=== PATIENT | female | born 1950 | race American Indian/Alaskan Native ===

== ENCOUNTER 2017-04-27 16:30 | Inpatient (IN) | payer OTHER ==
[2017-04-27 18:15] VITALS: BMI 23.7
--- NOTE | 2017-04-27 20:03 | HP ---
CIWA Score - CIWA Score Nausea/Vomitin Muscle Tremors: 1-None Visible, but Marshes Siding Anxiety: 1-Mildly Anxious Agitation: 1-Slight > Activity Paroxysmal Sweats: 3 Orientation: 1-Uncertain about Date Tacttile Disturbances: 2-Mild Itch/Numbness/Burn Auditory Disturbances: 1-Very Mild Visual Disturbances: 0-None Headache: 2-Mild CIWA-Ar Total Score: 14 Admission ROS BHS - HPI Chief Complaint: WITHDRAWAL SYMPTOMS Allergies/Adverse Reactions: Allergies Allergy/AdvReac Type Severity Reaction Status Date / Time No Known Allergies Allergy Verified 04/27/17 19:35 History of Present Illness: 67 Y.O. WOMAN WITH A HISTORY OF ALCOHOL, CRACK-COCAINE AND PCP DEPENDENCE IS HERE SEEKING DETOX. SHE IS CURRENTLY ENROLLED IN A MMPT AND REPORTS SHE WAS LAST MEDICATED TODAY AT 115MG OF METHADONE. LONGEST PERIOD CLEAN HAS BEEN 1 YEAR. Exam Limitations: No Limitations - Ebola screening Have you traveled outside of the country in the last 21 days: No Have you had contact with anyone from an Ebola affected area: No Have you been sick,other than usual withdrawal symptoms: No Do you have a fever: No - Review of Systems Constitutional: Diaphoresis, Loss of Appetite EENT: reports: Blurred Vision, Double Vision, Tearing Respiratory: reports: Cough, Orthopnea, Shortness of Breath, Wheezing Cardiac: reports: Palpitations GI: reports: Nausea : reports: No Symptoms Reported Musculoskeletal: reports: Joint Pain (LEFT HIP PAIN) Integumentary: reports: No Symptoms Reported Neuro: reports: Numbness (RIGHT HAND NUMBNESS) Endocrine: reports: No Symptoms Reported Hematology: reports: Anemia (SICKLE CELL TRAIT) Psychiatric: reports: Judgement Intact, Mood/Affect Appropiate Other Systems: Reviewed and Negative Patient History - Patient Medical History Hx Anemia: Yes (NORBERTO: WAS PREVIOUSLY ON FEOSOLL; SICKLE CELL TRAIT) Hx Asthma: Yes Hx Chronic Obstructive Pulmonary Disease (COPD): No Hx Cancer: No Hx Cardiac Disorders: Yes (HEART MURMUR ) Hx Congestive Heart Failure: No Hx Hypertension: Yes Hx Hypercholesterolemia: No Hx Pacemaker: No HX Cerebrovascular Accident: No Hx Seizures: No Hx Dementia: No Hx Diabetes: No Hx Gastrointestinal Disorders: No Hx Liver Disease: No Hx Genitourinary Disorders: No Hx Sexually Transmitted Disorders: Yes (gonorrhea) Hx Renal Disease (ESRD): No Hx Thyroid Disease: No Hx Human Immunodeficiency Virus (HIV): No Hx Hepatitis C: No Hx Depression: Yes Hx Suicide Attempt: No Hx Bipolar Disorder: No Hx Schizophrenia: No - Patient Surgical History Past Surgical History: Yes Hx Neurologic Surgery: No Hx Cataract Extraction: No Hx Cardiac Surgery: No Hx Lung Surgery: No Hx Breast Surgery: No Hx Breast Biopsy: No Hx Abdominal Surgery: Yes (UMBILICAL HERNIA SX) Hx Appendectomy: No Hx Cholecystectomy: No Hx Genitourinary Surgery: No Hx Section: No Hx Orthopedic Surgery: No Other Surgical History: umbilical hernia repair Anesthesia Reaction: No - PPD History Previous Implant?: Yes Documented Results: Positive w/proof PPD to be Administered?: No - Reproductive History Patient is a Female of Child Bearing Age (11 -55 yrs old): No Patient : No - Smoking Cessation Smoking history: Current every day smoker Have you smoked in the past 12 months: Yes Aproximately how many cigarettes per day: 20 Cigars Per Day: 0 Hx Chewing Tobacco Use: No Initiated information on smoking cessation: Yes 'Breaking Loose' booklet given: 04/27/17 - Substance & Tx. History Hx Alcohol Use: Yes Hx Substance Use: Yes Substance Use Type: Alcohol, Cocaine Hx Substance Use Treatment: Yes (DETOX: 09/2015) - Substances Abused Alcohol Route: Oral Frequency: Daily Amount used: LIQUOR- 2 PINTS, BEER- 6 SIX PACKS Age of first use: 18 Date of Last Use: 04/27/17 Crack Route: Smoking Frequency: Daily Amount used: $200 Age of first use: 36 Date of Last Use: 04/26/17 PCP Route: Smoking Frequency: Daily Amount used: $50 Age of first use: 36 Date of Last Use: 04/27/17 Family Disease History - Family Disease History Family Disease History: CA: Daughter (LUNG CA- ) Admission Physical Exam BHS - Vital Signs Vital Signs: Vital Signs - 24 hr 04/27/17 18:13 Temperature 96.1 F L Pulse Rate 57 L Respiratory 18 Rate Blood Pressure 168/76 - Physical General Appearance: Yes: Disheveled HEENTM: Yes: Hearing grossly Normal, Normocephalic, Normal Voice Respiratory: Yes: Chest Non-Tender, Lungs Clear, Normal Breath Sounds, No Respiratory Distress, No Accessory Muscle Use Neck: Yes: No masses,lesions,Nodules, Trachea in good position Breast: Yes: Breast Exam Deferred Cardiology: Yes: Regular Rhythm Abdominal: Yes: Normal Bowel Sounds, Non Tender, Flat, Soft Genitourinary: Yes: Within Normal Limits Back: Yes: Normal Inspection Extremities: Yes: Normal Inspection, Non-Tender Neurological: Yes: Alert, Normal Mood/Affect, Normal Response Integumentary: Yes: Normal Color, Dry, Warm Lymphatic: Yes: Within Normal Limits - Diagnostic (1) Cocaine dependence Current Visit: Yes Status: Acute (2) Alcohol dependence with uncomplicated withdrawal Current Visit: Yes Status: Chronic (3) Nicotine addiction Current Visit: Yes Status: Chronic Qualifiers: Nicotine product type: cigarettes Substance use status: uncomplicated Qualified Code(s): F17.210 - Nicotine dependence, cigarettes, uncomplicated ; F17.210 - Nicotine dependence, cigarettes, uncomplicated (4) PCP (phencyclidine) abuse Current Visit: Yes Status: Chronic (5) Opioid dependence on agonist therapy Current Visit: Yes Status: Chronic (6) Asthma Current Visit: Yes Status: Chronic (7) History of positive PPD Current Visit: Yes Status: Chronic (8) Hypertension Current Visit: Yes Status: Chronic Cleared for Admission [facility] - Detox or Rehab [facility] Level of Care: Medically Managed Detox Regimen/Protocol: Librium [facility] Breath Alcohol Content Breath Alcohol Content: 0 Urine Pregancy Test - Result Urine Test Results: Negative- NO Line Present Urine Drug Screen - Results Drug Screen Negative: No Urine Drug Screen Results: PEGGY-Cocaine, PCP-Phencyclidine, MTD-Methadone
[2017-04-27] MEDS ORDERED: LOPERAMIDE HCL 2 MG CAPSULE PO PRN (20:17)
[2017-04-27] MEDS ORDERED: hydrOXYzine PAMOATE 50 MG CAPSULE (FP) PO PRN (20:17)
[2017-04-27] MEDS ORDERED: MENTHOL/PHENOL 1 EACH UD MM PRN (20:17)
[2017-04-27] MEDS ORDERED: diphenhydrAMINE HCL 50 MG CAPSULE PO PRN (20:17)
[2017-04-27] MEDS ORDERED: MAGNESIUM CITRATE 300 ML BOTTLE PO PRN (20:17)
[2017-04-27] MEDS ORDERED: guaiFENesin/D-METHORPHAN HB 10 ML UNIT-DOSE CUPS PO PRN (20:17)
[2017-04-27] MEDS ORDERED: chlordiazePOXIDE HCL 25 MG CAPSULE PO PRN (20:17)
[2017-04-27] MEDS ORDERED: MAGNESIUM HYDROX 2400MG/30ML ORAL SUSPENSION 30 ML CUP PO PRN (20:17)
[2017-04-27] MEDS ORDERED: P-EPHED 60MG/TRIPROLIDI 2.5MG TABLET PO PRN (20:17)
[2017-04-27] MEDS ORDERED: MAG HYDROX/AL HYDROX/SIMETH 30 ML UNIT-DOSE CUP PO PRN (20:17)
[2017-04-27] MEDS ORDERED: ACETAMINOPHEN 325 MG TABLET (FP) PO PRN (20:17)
[2017-04-27] MEDS ORDERED: chlordiazePOXIDE HCL 25 MG CAPSULE PO ONE (20:17)
[2017-04-27] MEDS ORDERED: ALBUTEROL SO4 18 GM HFA INHALER IH PRN (20:21)
[2017-04-27] MEDS ORDERED: ENALAPRIL MALEATE 10 MG TABLET (FP) PO SCH (20:30)
[2017-04-27] MEDS: ENALAPRIL MALEATE 10 MG TABLET (FP) PO SCH (21:47)
[2017-04-27] MEDS: THIAMINE HCL 100 MG TABLET (FP) PO SCH (21:48)
[2017-04-27] MEDS: chlordiazePOXIDE HCL 25 MG CAPSULE PO SCH (22:55)
[2017-04-27 23:35] LABS: URINE APPEARANCE SLCLOUDY; URINE BILIRUBIN NEGATIVE (NEGATIVE); URINE BLOOD 1+ (NEGATIVE); URINE COLOR LTYELLOW; URINE GLUCOSE (UA) NEGATIVE (NEGATIVE); URINE KETONE NEGATIVE (NEGATIVE); URINE NITRITE NEGATIVE (NEGATIVE); URINE PROTEIN NEGATIVE (NEGATIVE); URINE UROBILINOGEN NEGATIVE mg/dL (0.2-1.0)
[2017-04-27 23:44] LABS: URINE BACTERIA RARE /hpf (NONE SEEN); URINE MUCUS RARE; URINE RBC 8 /hpf (0-3); URINE WBC 1 /hpf (3-5)
[2017-04-28] MEDS: chlordiazePOXIDE HCL 25 MG CAPSULE PO SCH ×4 (05:07→23:13)
[2017-04-28] MEDS ORDERED: METHADONE HCL 40 MG DISPERSABLE TABLET PO SCH (09:30)
--- NOTE | 2017-04-28 10:16 | PN ---
S CIWA - CIWA Score Nausea/Vomitin Muscle Tremors: 3 Anxiety: 3 Agitation: 3 Paroxysmal Sweats: 1-Minimal Palms Moist Orientation: 0-Oriented Tacttile Disturbances: 1-Very Mild Itch/Numbness Auditory Disturbances: 1-Very Mild Visual Disturbances: 0-None Headache: 2-Mild CIWA-Ar Total Score: 17 BHS Progress Note (SOAP) Subjective: alert,irritable,anxious,interrupted sleep,tremor Objective: 04/28/17 10:16 Vital Signs Temperature 98.1 F 04/28/17 06:12 Pulse Rate 54 L 04/28/17 06:12 Respiratory Rate 18 04/28/17 06:12 Blood Pressure 129/81 04/28/17 06:12 O2 Sat by Pulse Oximetry (%) ekg sinus bradycardia 52/min no chest pain,no sob,no dizziness Laboratory Last Values Urine Color Ltyellow 04/27/17 23:00 Urine Appearance Slcloudy 04/27/17 23:00 Urine pH 5.0 (5.0-8.0) 04/27/17 23:00 Urine Protein Negative (NEGATIVE) 04/27/17 23:00 Urine Glucose (UA) Negative (NEGATIVE) 04/27/17 23:00 Urine Ketones Negative (NEGATIVE) 04/27/17 23:00 Urine Blood 1+ (NEGATIVE) H 04/27/17 23:00 Urine Nitrite Negative (NEGATIVE) 04/27/17 23:00 Urine Bilirubin Negative (NEGATIVE) 04/27/17 23:00 Urine Urobilinogen Negative mg/dL (0.2-1.0) 04/27/17 23:00 Urine RBC 8 /hpf (0-3) 04/27/17 23:00 Urine WBC 1 /hpf (3-5) 04/27/17 23:00 Ur Epithelial Cells Rare /hpf (FEW) 04/27/17 23:00 Urine Bacteria Rare /hpf (NONE SEEN) 04/27/17 23:00 Urine Mucus Rare 04/27/17 23:00 labs pending Assessment: 04/28/17 10:17 withdrawal symptom Plan: continue detox
[2017-04-28] MEDS: IBUPROFEN 600 MG TABLET (FP) PO PRN (10:17)
[2017-04-28] MEDS: PRENATAL VITAMINS W/ FOLIC ACID TABLET (FP) PO SCH (10:17)
[2017-04-28] MEDS: ENALAPRIL MALEATE 10 MG TABLET (FP) PO SCH ×2 (10:17→22:17)
[2017-04-28 10:55] LABS: MCH 27.9 pg (25.7-33.7); MCHC 31.8 g/dl (32.0-36.0); MEAN CELL VOLUME 87.5 fl (80-96); MEAN PLT VOLUME 9.1 fl (7.5-11.1); PLATELET COUNT 196 K/MM3 (134-434); RDW 15.6 % (11.6-15.6); WHITE BLOOD COUNT 3.8 K/mm3 (4.0-10.0)
[2017-04-28 11:05] LABS: ALBUMIN 3.6 g/dl (3.4-5.0); ANION GAP 9 (8-16); CALCIUM 9.1 mg/dL (8.5-10.1); CO2 24 mmol/L (21-32); GLUCOSE,RANDOM 150 mg/dL (74-106); SGOT/AST 19 U/L (15-37); SGPT/ALT 16 U/L (12-78)
[2017-04-28] MEDS ORDERED: METHADONE HCL 40 MG DISPERSABLE TABLET ONE (11:05)
[2017-04-28 11:06] LABS: ALK PHOS 95 U/L (45-117); BILIRUBIN,TOTAL 0.3 mg/dL (0.2-1.0); CREATININE 1.4 mg/dL (0.55-1.02); TOT PROT 6.8 g/dl (6.4-8.2)
[2017-04-28] MEDS ORDERED: METHADONE HCL 10 MG TABLET (FOR DETOX USE ONLY) ONE (11:06)
[2017-04-28] MEDS ORDERED: METHADONE HCL 5 MG TABLET ONE (11:09)
[2017-04-28 11:50] LABS: URINE LEUK ESTERASE Negative (NEGATIVE)
--- NOTE | 2017-04-28 12:52 | EKG ---
Test Reason : Blood Pressure : / mmHG Vent. Rate : 052 BPM Atrial Rate : 052 BPM P-R Int : 148 ms QRS Dur : 084 ms QT Int : 494 ms P-R-T Axes : -17 032 033 degrees QTc Int : 459 ms SINUS BRADYCARDIA OTHERWISE NORMAL ECG NO PREVIOUS ECGS AVAILABLE Confirmed by TROY COOK MD ([id number]) on 04/28/2017 12:52:11 PM Referred By: Confirmed By:TROY COOK MD
[2017-04-28] MEDS: METHADONE PO SCH (13:03)
--- NOTE | 2017-04-28 16:33 | CONSULT ---
[facility] Psychiatric Consult - Data Date of interview: 04/28/17 Admission source: [facility] Identifying data: Readmission to [facility] for this 67 y/o AA female seeking detos treatment on for alcohol,cocaine,heroin and phencyclidine dependence.Patient is ,a mother of three,domiciled,unemployed and supported on SSI benefits. Substance Abuse History: Discussed with patient in session.Addictions confirmed. Smoking Cessation. Smoking history: Current every day smoker. Have you smoked in the past 12 months: Yes. Aproximately how many cigarettes per day: 20. Cigars Per Day: 0. Hx Chewing Tobacco Use: No. Initiated information on smoking cessation: Yes. 'Breaking Loose' booklet given: . - Substance & Tx. History. Hx Alcohol Use: Yes. Hx Substance Use: Yes. Substance Use Type: Alcohol, Cocaine. Hx Substance Use Treatment: Yes (DETOX: ). - Substances Abused. Alcohol. Route: Oral. Frequency: Daily. Amount used: LIQUOR- 2 PINTS, BEER- 6 SIX PACKS. Age of first use: 18. Date of Last Use: 04/27/17. Crack. Route: Smoking. Frequency: Daily. Amount used: $200. Age of first use: 36. Date of Last Use: 04/26/17. PCP. Route : Smoking. Frequency: Daily. Amount used: $50. Age of first use: 36. Date of Last Use: 04/27/17 Medical History: Chronic hip pain,anemia (sickle cell trait),hypertension,heart murmur and gonorrhea ( as per [facility] report). Psychiatric History: Psychiatric hospitalization at [facility].Diagnosed with Schizophrenia.No reported OPD care.Off psychotropic medications.Ms Valladares denies history of suicide attempts.Questionable historian : no antipsychotic medications found in review of pharmacy claims at [facility] (only zolpidem). Physical/Sexual Abuse/Trauma History: Patient denies. Additional Comment: Urine Drug Screen Results: PEGGY-Cocaine, PCP-Phencyclidine, MTD-Methadone.Noted. Mental Status Exam - Mental Status Exam Alert and Oriented to: Time, Place, Person Cognitive Function: Grossly Intact Patient Appearance: Well Groomed (walked with a stooped posture) Mood: Nervous, Withdrawn Affect: Mood Congruent Patient Behavior: Sedated (mildly sedated), Fatigued Speech Pattern: Delayed, Slurred Voice Loudness: Moderately Soft/Quiet Thought Process: Goal Oriented Thought Disorder: Not Present Hallucinations: Denies Suicidal Ideation: Denies Homicidal Ideation: Denies Insight/Judgement: Poor Sleep: Fair Appetite: Good Gait/Station: Other (slow gait ; stooped posture) Psychiatric Findings - Problem List ([place] 1, 2,3) (1) Alcohol dependence with uncomplicated withdrawal Current Visit: Yes Status: Acute (2) Cocaine dependence Current Visit: Yes Status: Acute (3) Opioid dependence on agonist therapy Current Visit: Yes Status: Acute (4) Nicotine addiction Current Visit: Yes Status: Acute Qualifiers: Nicotine product type: cigarettes Substance use status: uncomplicated Qualified Code(s): F17.210 - Nicotine dependence, cigarettes, uncomplicated ; F17.210 - Nicotine dependence, cigarettes, uncomplicated (5) PCP (phencyclidine) abuse Current Visit: Yes Status: Acute (6) Drug-induced mood disorder Current Visit: Yes Status: Acute (7) Asthma Current Visit: Yes Status: Chronic (8) History of positive PPD Current Visit: Yes Status: Chronic (9) Hypertension Current Visit: Yes Status: Chronic (10) Anemia Current Visit: Yes Status: Acute (11) Walker as ambulation aid Current Visit: Yes Status: Chronic - Initial Treatment Plan Initial Treatment Plan: Psychoeducation.Detoxification.Observation.
[2017-04-28] MEDS: THIAMINE HCL 100 MG TABLET (FP) PO SCH (22:17)
[2017-04-28] MEDS ORDERED: diphenhydrAMINE HCL 25 MG CAPSULE (FP) PO ONE (23:48)
[2017-04-29] MEDS ORDERED: METHADONE HCL 5 MG TABLET ONE (04:26)
[2017-04-29] MEDS ORDERED: METHADONE HCL 10 MG TABLET (FOR DETOX USE ONLY) ONE (04:26)
[2017-04-29] MEDS ORDERED: METHADONE HCL 40 MG DISPERSABLE TABLET ONE (04:26)
[2017-04-29] MEDS: chlordiazePOXIDE HCL 25 MG CAPSULE PO SCH ×3 (05:42→17:40)
[2017-04-29] MEDS: METHADONE PO SCH (05:42)
[2017-04-29] MEDS ORDERED: diphenhydrAMINE HCL 25 MG CAPSULE (FP) PO PRN (08:41)
[2017-04-29] MEDS: ENALAPRIL MALEATE 10 MG TABLET (FP) PO SCH ×2 (10:53→22:23)
[2017-04-29] MEDS: PRENATAL VITAMINS W/ FOLIC ACID TABLET (FP) PO SCH (10:56)
[2017-04-29] MEDS ORDERED: COLLOIDAL OATMEAL 1 BAR EACH TP PRN (12:21)
[2017-04-29] MEDS ORDERED: predniSONE 20 MG TABLET (UD) PO ONE (12:22)
--- NOTE | 2017-04-29 12:32 | PN ---
[facility] CIWA - CIWA Score Nausea/Vomitin Muscle Tremors: 3 Anxiety: 2 Agitation: 2 Paroxysmal Sweats: 1-Minimal Palms Moist Orientation: 0-Oriented Tacttile Disturbances: 1-Very Mild Itch/Numbness Auditory Disturbances: 1-Very Mild Visual Disturbances: 1-Very Mild Sensitivity Headache: 1-Very Mild CIWA-Ar Total Score: 15 S Progress Note (SOAP) Subjective: ALERT,EDEMA OF FACE EYELID,NO DIFFICULTY IN BREATHING Objective: 04/29/17 12:35 Vital Signs Temperature 97.7 F 04/29/17 10:54 Pulse Rate 63 04/29/17 10:54 Respiratory Rate 18 04/29/17 10:54 Blood Pressure 114/86 04/29/17 10:54 O2 Sat by Pulse Oximetry (%) 04/29/17 12:35 Laboratory Last Values WBC 3.8 K/mm3 (4.0-10.0) L 04/28/17 08:00 RBC 4.33 M/mm3 (3.60-5.2) 04/28/17 08:00 Hgb 12.1 GM/dL (10.7-15.3) 04/28/17 08:00 Hct 37.9 % (32.4-45.2) 04/28/17 08:00 MCV 87.5 fl (80-96) 04/28/17 08:00 MCH 27.9 pg (25.7-33.7) D 04/28/17 08:00 MCHC 31.8 g/dl (32.0-36.0) L 04/28/17 08:00 RDW 15.6 % (11.6-15.6) D 04/28/17 08:00 Plt Count 196 K/MM3 (134-434) D 04/28/17 08:00 MPV 9.1 fl (7.5-11.1) 04/28/17 08:00 Sodium 140 mmol/L (136-145) 04/28/17 08:00 Potassium 4.0 mmol/L (3.5-5.1) 04/28/17 08:00 Chloride 107 mmol/L (98-107) 04/28/17 08:00 Carbon Dioxide 24 mmol/L (21-32) 04/28/17 08:00 Anion Gap 9 (8-16) 04/28/17 08:00 BUN 28 mg/dL (7-18) H 04/28/17 08:00 Creatinine 1.4 mg/dL (0.55-1.02) H D 04/28/17 08:00 Creat Clearance w eGFR 37.62 (>60) 04/28/17 08:00 Random Glucose 150 mg/dL (74-106) H D 04/28/17 08:00 Calcium 9.1 mg/dL (8.5-10.1) 04/28/17 08:00 Total Bilirubin 0.3 mg/dL (0.2-1.0) 04/28/17 08:00 AST 19 U/L (15-37) 04/28/17 08:00 ALT 16 U/L (12-78) D 04/28/17 08:00 Alkaline Phosphatase 95 U/L (45-117) D 04/28/17 08:00 Total Protein 6.8 g/dl (6.4-8.2) 04/28/17 08:00 Albumin 3.6 g/dl (3.4-5.0) 04/28/17 08:00 Urine Color Ltyellow 04/27/17 23:00 Urine Appearance Slcloudy 04/27/17 23:00 Urine pH 5.0 (5.0-8.0) 04/27/17 23:00 Ur Specific [place] 1.010 (1.005-1.025) 04/27/17 23:00 Urine Protein Negative (NEGATIVE) 04/27/17 23:00 Urine Glucose (UA) Negative (NEGATIVE) 04/27/17 23:00 Urine Ketones Negative (NEGATIVE) 04/27/17 23:00 Urine Blood 1+ (NEGATIVE) H 04/27/17 23:00 Urine Nitrite Negative (NEGATIVE) 04/27/17 23:00 Urine Bilirubin Negative (NEGATIVE) 04/27/17 23:00 Urine Urobilinogen Negative mg/dL (0.2-1.0) 04/27/17 23:00 Ur Leukocyte Esterase Negative (NEGATIVE) 04/27/17 23:00 Urine RBC 8 /hpf (0-3) 04/27/17 23:00 Urine WBC 1 /hpf (3-5) 04/27/17 23:00 Ur Epithelial Cells Rare /hpf (FEW) 04/27/17 23:00 Urine Bacteria Rare /hpf (NONE SEEN) 04/27/17 23:00 Urine Mucus Rare 04/27/17 23:00 RPR Titer Nonreactive (NONREACTIVE) 04/28/17 08:00 Assessment: 04/29/17 12:35 WITHDRAWAL SYMPTOM Plan: CONTINUE DETOX,NO NEW MEDICATIONS,FOOD,WILL GIVE PATIENT TAPER OFF PREDNISONE, BGM BID,INITIAL GLUCOSE IS 150 MG
[2017-04-29] MEDS: THIAMINE HCL 100 MG TABLET (FP) PO SCH (22:23)
[2017-04-29] MEDS: chlordiazePOXIDE 5 MG CAPSULE PO SCH (23:24)
[2017-04-30] MEDS ORDERED: METHADONE HCL 40 MG DISPERSABLE TABLET ONE (06:01)
[2017-04-30] MEDS ORDERED: METHADONE HCL 10 MG TABLET (FOR DETOX USE ONLY) ONE (06:02)
[2017-04-30] MEDS ORDERED: METHADONE HCL 5 MG TABLET ONE (06:02)
[2017-04-30] MEDS: METHADONE PO SCH (06:11)
[2017-04-30] MEDS: chlordiazePOXIDE 5 MG CAPSULE PO SCH ×3 (06:13→17:05)
[2017-04-30] MEDS ORDERED: predniSONE 10 MG TABLET (UD) PO ONE (10:00)
[2017-04-30] MEDS: ENALAPRIL MALEATE 10 MG TABLET (FP) PO SCH ×2 (10:21→22:14)
[2017-04-30] MEDS: PRENATAL VITAMINS W/ FOLIC ACID TABLET (FP) PO SCH (10:21)
--- NOTE | 2017-04-30 11:34 | PN ---
BHS Progress Note (SOAP) Subjective: alert,irritable,anxious,interrupted sleep,swelling of face is less,on taper off prednisone Objective: 04/30/17 11:33 Vital Signs Temperature 98.9 F 04/30/17 11:02 Pulse Rate 80 04/30/17 11:02 Respiratory Rate 20 04/30/17 11:02 Blood Pressure 137/60 04/30/17 11:02 O2 Sat by Pulse Oximetry (%) Assessment: 04/30/17 11:33 withdrawal symptom Plan: continue detox,discharge in am
[2017-04-30] MEDS: IBUPROFEN 600 MG TABLET (FP) PO PRN (20:12)
[2017-04-30] MEDS: THIAMINE HCL 100 MG TABLET (FP) PO SCH (22:14)
[2017-04-30] MEDS: chlordiazePOXIDE HCL 10 MG CAPSULE PO SCH (22:14)
[2017-05-01] MEDS ORDERED: METHADONE HCL 40 MG DISPERSABLE TABLET ONE (04:35)
[2017-05-01] MEDS ORDERED: METHADONE HCL 5 MG TABLET ONE (04:36)
[2017-05-01] MEDS ORDERED: METHADONE HCL 10 MG TABLET (FOR DETOX USE ONLY) ONE (04:36)
[2017-05-01] MEDS: METHADONE PO SCH (05:16)
[2017-05-01] MEDS: chlordiazePOXIDE HCL 10 MG CAPSULE PO SCH ×2 (05:17→10:17)
--- NOTE | 2017-05-01 08:35 | DS ---
[facility] Detox Discharge Summary Admission Date: 04/27/17 Discharge Date: 05/01/17 - History Present History: Alcohol Dependence, Cocaine Dependence, MMTP Additional Comments: follow up with after care program as arrangement Pertinent Past History: asthma hypertension nicotine dependence pcp abused - Physical Exam Results Vital Signs: Vital Signs Temperature 97.1 F L 05/01/17 06:39 Pulse Rate 67 05/01/17 06:39 Respiratory Rate 18 05/01/17 06:39 Blood Pressure 141/87 05/01/17 06:39 O2 Sat by Pulse Oximetry (%) Pertinent Admission Physical Exam Findings: withdrawal symptom - Treatment Hospital Course: Detox Protocol Followed, Detoxed Safely, Responded well, Discharged Condition Good, Rehab Referral Accepted Patient has Accepted a Rehab Referral to: [facility] - Medication Discharge Medications: Ambulatory Orders Ferrous Sulfate [Feosol] 325 mg PO TID #0 ud 06/25/12 Albuterol Sulfate Inhaler - [Ventolin HFA Inhaler -] 2 inh IH Q4H PRN #1 inhaler 10/11/15 Enalapril Maleate [Vasotec -] 10 mg PO BID #60 tablet 10/11/15 - Diagnosis (1) Alcohol dependence with uncomplicated withdrawal Current Visit: Yes Status: Acute (2) Cocaine dependence Current Visit: Yes Status: Acute (3) Nicotine addiction Current Visit: Yes Status: Acute Qualifiers: Nicotine product type: cigarettes Substance use status: uncomplicated Qualified Code(s): F17.210 - Nicotine dependence, cigarettes, uncomplicated ; F17.210 - Nicotine dependence, cigarettes, uncomplicated (4) Opioid dependence on agonist therapy Current Visit: Yes Status: Acute (5) PCP (phencyclidine) abuse Current Visit: Yes Status: Acute (6) Asthma Current Visit: Yes Status: Chronic (7) Drug-induced mood disorder Current Visit: Yes Status: Acute - AMA Did Patient Leave Against Medical Advice: No
[2017-05-01] MEDS ORDERED: predniSONE 20 MG TABLET (UD) PO ONE (10:00)
[2017-05-01 10:12] VITALS: BP 148/78; PULSE 58; TEMP 97.7
[2017-05-01] MEDS: PRENATAL VITAMINS W/ FOLIC ACID TABLET (FP) PO SCH (10:17)
[2017-05-01] MEDS: ENALAPRIL MALEATE 10 MG TABLET (FP) PO SCH (10:17)
[2017-05-02] MEDS ORDERED: predniSONE 10 MG TABLET (UD) PO ONE (10:00)
== END 2017-05-01 11:25 | disposition other institution (70) | DRG 897 ==
LOC: YASAS 16:30 → Y6N 19:48
PROVIDERS: ADMIT Internal Medicine; ATTEND Internal Medicine
PROC: HZ2ZZZZ Detoxification Services for Substance Abuse Treatment (ICD-10-PCS; principal; 2017-04-27)
DX: F11.20 Opioid dependence, uncomplicated (principal); F10.230 Alcohol dependence with withdrawal, uncomplicated; F14.20 Cocaine dependence, uncomplicated; F16.10 Hallucinogen abuse, uncomplicated; F19.24 Other psychoactive substance dependence with psychoactive substance-induced mood disorder; J45.909 Unspecified asthma, uncomplicated; D50.8 Other iron deficiency anemias; I10 Essential (primary) hypertension; D57.3 Sickle-cell trait; R76.11 Nonspecific reaction to tuberculin skin test without active tuberculosis; R26.89 Other abnormalities of gait and mobility; Z99.89 Dependence on other enabling machines and devices; Z87.42 Personal history of other diseases of the female genital tract
CPT/HCPCS: 36415; 71020-TC; 80053; 81003; 81015; 85027; 86593; 93005; 93010

== ENCOUNTER 2017-05-01 11:30 | Inpatient (IN) | payer OTHER ==
[2017-05-01 12:02] VITALS: BMI 23.0
[2017-05-01] MEDS ORDERED: MENTHOL/PHENOL 1 EACH UD MM PRN (12:31)
[2017-05-01] MEDS ORDERED: ACETAMINOPHEN 325 MG TABLET (FP) PO PRN (12:31)
[2017-05-01] MEDS ORDERED: MAG HYDROX/AL HYDROX/SIMETH 30 ML UNIT-DOSE CUP PO PRN (12:31)
[2017-05-01] MEDS ORDERED: MAGNESIUM CITRATE 300 ML BOTTLE PO PRN (12:31)
[2017-05-01] MEDS ORDERED: IBUPROFEN 400 MG TABLET (FP) PO PRN (12:31)
[2017-05-01] MEDS ORDERED: guaiFENesin/D-METHORPHAN HB 10 ML UNIT-DOSE CUPS PO PRN (12:31)
[2017-05-01] MEDS ORDERED: NICOTINE POLACRILEX 2 MG GUM BUC PRN (12:31)
[2017-05-01] MEDS ORDERED: P-EPHED 60MG/TRIPROLIDI 2.5MG TABLET PO PRN (12:31)
[2017-05-01] MEDS ORDERED: MAGNESIUM HYDROX 2400MG/30ML ORAL SUSPENSION 30 ML CUP PO PRN (12:31)
[2017-05-01] MEDS ORDERED: ALBUTEROL SO4 18 GM HFA INHALER IH PRN (12:32)
[2017-05-01] MEDS ORDERED: COLLOIDAL OATMEAL 1 BAR EACH TP PRN (12:34)
--- NOTE | 2017-05-01 12:37 | HP ---
[facility] Rehab Assess/Revision - Admission History Admitted to Rehab from: [facility] Date of Admission to Rehab: 05/01/2017 - Vital signs Vital Signs: Vital Signs Period Temp Pulse Resp BP Sys/Mcgarry Pulse Ox Last 24 Hr 98 F 58 17 125/80 - Findings Detox History & Physical reviewed: Yes Concur with findings: Yes Comments/Additional Findings: patient requesting to go down on mehtadone dose to 105, will give glucerna in view of elevated glucose monitoring, on prednisone taper, ambulates with cane s/p kne replacement surgery Inpatient Rehab Admission - Initial Determination Are CD services needed?: Yes Free of communicable disease: Yes Not in need of hospitalization: Yes - Rehab Admission Criteria Comorbidities: Yes Patient is meeting Inpatient Rehab admission criteria:: Yes
[2017-05-01] MEDS: LOPERAMIDE HCL 2 MG CAPSULE PO PRN (18:21)
[2017-05-01] MEDS: FERROUS SO4 325 MG TABLET (FP) PO SCH (18:21)
[2017-05-01] MEDS: THIAMINE HCL 100 MG TABLET (FP) PO SCH (21:24)
[2017-05-01] MEDS: ENALAPRIL MALEATE 10 MG TABLET (FP) PO SCH (21:24)
[2017-05-02] MEDS: LOPERAMIDE HCL 2 MG CAPSULE PO PRN ×2 (03:33→13:51)
[2017-05-02] MEDS ORDERED: METHADONE HCL 10 MG TABLET PO SCH (06:00)
[2017-05-02] MEDS ORDERED: METHADONE HCL 5 MG TABLET ONE (06:14)
[2017-05-02] MEDS ORDERED: METHADONE HCL 10 MG TABLET ONE (06:14)
[2017-05-02] MEDS ORDERED: METHADONE HCL 40 MG DISPERSABLE TABLET ONE (06:15)
[2017-05-02] MEDS: METHADONE 80 MG, METHADONE 20 MG, METHADONE 5 MG PO SCH (06:29)
[2017-05-02] MEDS: FERROUS SO4 325 MG TABLET (FP) PO SCH ×3 (07:01→18:59)
[2017-05-02] MEDS ORDERED: predniSONE 10 MG TABLET (UD) PO ONE (10:00)
[2017-05-02] MEDS: ENALAPRIL MALEATE 10 MG TABLET (FP) PO SCH ×2 (10:11→21:27)
[2017-05-02] MEDS: PRENATAL VITAMINS W/ FOLIC ACID TABLET (FP) PO SCH (10:11)
[2017-05-02] MEDS: NICOTINE 14 MG/24 HOURS TOPICAL PATCH TD SCH (10:12)
--- NOTE | 2017-05-02 11:03 | HP ---
Psychiatrist Admission - Data Date of interview: 05/02/17 Admission source: [facility] Identifying data: This is the first admission to [address] [place] [address] for this 67 years old female,single mother of 3 (2 of them ), resides with grandson,supported by [facility]. Medical History: Anemia,Expecting L hip replacement,HTN. Psychiatric History: denies Physical/Sexual Abuse/Trauma History: denies Vital Signs: Vital Signs - 24 hr 05/01/17 05/01/17 05/02/17 11:57 23:09 00:30 Temperature 98 F Pulse Rate 58 L 56 L Respiratory 17 18 Rate Blood Pressure 125/80 172/92 05/02/17 05/02/17 07:28 09:36 Temperature 98.1 F Pulse Rate 50 L 60 Respiratory 18 Rate Blood Pressure 161/84 161/91 Allergies/Adverse Reactions: Allergies Allergy/AdvReac Type Severity Reaction Status Date / Time No Known Allergies Allergy Verified 04/27/17 19:35 Date of last physical exam: 04/27/17 Concur with the findings of this exam: Yes - Substance Abuse/Tx History Hx Alcohol Use: Yes (drinking since 18 yo,beer six pack daily) Hx Substance Use: Yes (cocaine since 25 yo,heroin since 25 yo (iv),5 bags daily) Substance Use Type: Alcohol, Cocaine, Heroin Hx Substance Use Treatment: Yes (completed intermediate inpatient last year, relapsed after 1 year) Mental Status Exam - Mental Status Exam Alert and Oriented to: Time, Place, Person Cognitive Function: Grossly Intact Patient Appearance: Well Groomed Mood: Euthymic Affect: Appropriate, Mood Congruent, Normal Range Patient Behavior: Cooperative Speech Pattern: Clear Voice Loudness: Normal Thought Process: Goal Oriented Thought Disorder: Not Present Hallucinations: Denies Suicidal Ideation: Denies Homicidal Ideation: Denies Insight/Judgement: Fair Sleep: Fair Appetite: Good Muscle strength/Tone: Normal Gait/Station: Normal Psychiatric Findings - Problem List ([place] 1, 2,3) (1) Alcohol dependence Current Visit: Yes Status: Chronic (2) Anemia Current Visit: Yes Status: Chronic (3) Cocaine dependence Current Visit: Yes Status: Chronic (4) Drug-induced mood disorder Current Visit: Yes Status: Chronic (5) Methadone maintenance therapy patient Current Visit: Yes Status: Chronic (6) Nicotine addiction Current Visit: Yes Status: Chronic (7) Opioid dependence on agonist therapy Current Visit: Yes Status: Chronic - Initial Treatment Plan Initial Treatment Plan: Will monitor progress.
[2017-05-02 11:15] LABS: HIV 1 & 2 AB NEGATIVE; HIV 1 AGp24 NEGATIVE
[2017-05-02] MEDS: THIAMINE HCL 100 MG TABLET (FP) PO SCH (21:27)
[2017-05-02] MEDS ORDERED: PT OWN MED DRAWER 7, Y5N ONE (23:01)
[2017-05-03] MEDS ORDERED: METHADONE HCL 5 MG TABLET ONE (02:58)
[2017-05-03] MEDS ORDERED: METHADONE HCL 10 MG TABLET ONE (02:58)
[2017-05-03] MEDS ORDERED: METHADONE HCL 40 MG DISPERSABLE TABLET ONE (02:58)
[2017-05-03] MEDS: METHADONE 80 MG, METHADONE 20 MG, METHADONE 5 MG PO SCH (06:33)
[2017-05-03] MEDS: FERROUS SO4 325 MG TABLET (FP) PO SCH ×3 (07:29→18:30)
[2017-05-03] MEDS ORDERED: predniSONE 5 MG TABLET (UD) PO ONE (10:00)
[2017-05-03] MEDS: NICOTINE 14 MG/24 HOURS TOPICAL PATCH TD SCH (10:07)
[2017-05-03] MEDS: PRENATAL VITAMINS W/ FOLIC ACID TABLET (FP) PO SCH (10:07)
[2017-05-03] MEDS ORDERED: PT OWN MED DRAWER 7, Y5N ONE ×4 (10:07→22:50)
[2017-05-03] MEDS: ENALAPRIL MALEATE 10 MG TABLET (FP) PO SCH ×2 (10:08→21:23)
[2017-05-03] MEDS: THIAMINE HCL 100 MG TABLET (FP) PO SCH (21:23)
[2017-05-04] MEDS ORDERED: METHADONE HCL 5 MG TABLET ONE (05:48)
[2017-05-04] MEDS ORDERED: METHADONE HCL 40 MG DISPERSABLE TABLET ONE (05:48)
[2017-05-04] MEDS ORDERED: METHADONE HCL 10 MG TABLET ONE (05:48)
[2017-05-04] MEDS: METHADONE 80 MG, METHADONE 20 MG, METHADONE 5 MG PO SCH (06:52)
[2017-05-04] MEDS: FERROUS SO4 325 MG TABLET (FP) PO SCH (07:20)
[2017-05-04] MEDS: PRENATAL VITAMINS W/ FOLIC ACID TABLET (FP) PO SCH (10:30)
[2017-05-04] MEDS: NICOTINE 14 MG/24 HOURS TOPICAL PATCH TD SCH (10:30)
[2017-05-04] MEDS: ENALAPRIL MALEATE 10 MG TABLET (FP) PO SCH ×2 (10:33→21:28)
[2017-05-04] MEDS: THIAMINE HCL 100 MG TABLET (FP) PO SCH (21:28)
[2017-05-04] MEDS: hydrOXYzine PAMOATE 50 MG CAPSULE (FP) PO PRN (21:29)
[2017-05-05] MEDS ORDERED: METHADONE HCL 10 MG TABLET ONE (03:20)
[2017-05-05] MEDS ORDERED: METHADONE HCL 5 MG TABLET ONE (03:20)
[2017-05-05] MEDS ORDERED: METHADONE HCL 40 MG DISPERSABLE TABLET ONE (03:21)
[2017-05-05] MEDS: METHADONE 80 MG, METHADONE 20 MG, METHADONE 5 MG PO SCH (06:50)
[2017-05-05 09:21] LABS: BASOPHIL 0.7 % (0-2.0); EOSINOPHIL 1.7 % (0-4.5); MEAN CELL VOLUME 87.3 fl (80-96); MEAN PLT VOLUME 9.6 fl (7.5-11.1); NEUTROPHILS 41.2 % (42.8-82.8); PLATELET COUNT 194 K/MM3 (134-434); RDW 15.7 % (11.6-15.6); WHITE BLOOD COUNT 4.3 K/mm3 (4.0-10.0)
[2017-05-05] MEDS: NICOTINE 14 MG/24 HOURS TOPICAL PATCH TD SCH (09:44)
[2017-05-05] MEDS: ENALAPRIL MALEATE 10 MG TABLET (FP) PO SCH ×2 (09:45→21:18)
[2017-05-05] MEDS: PRENATAL VITAMINS W/ FOLIC ACID TABLET (FP) PO SCH (09:45)
[2017-05-05] MEDS ORDERED: PT OWN MED DRAWER 7, Y5N ONE ×3 (10:26→14:31)
[2017-05-05 11:07] LABS: ALBUMIN 3.3 g/dl (3.4-5.0); ALK PHOS 82 U/L (45-117); ANION GAP 9 (8-16); BILIRUBIN,TOTAL 0.2 mg/dL (0.2-1.0); CALCIUM 8.4 mg/dL (8.5-10.1); CO2 22 mmol/L (21-32); CREATININE 1.4 mg/dL (0.55-1.02); GLUCOSE,RANDOM 72 mg/dL (74-106); SGOT/AST 10 U/L (15-37); SGPT/ALT 18 U/L (12-78); TOT PROT 6.6 g/dl (6.4-8.2)
[2017-05-05] MEDS: hydrOXYzine PAMOATE 50 MG CAPSULE (FP) PO PRN (21:18)
[2017-05-05] MEDS: THIAMINE HCL 100 MG TABLET (FP) PO SCH (21:18)
[2017-05-06] MEDS ORDERED: METHADONE HCL 10 MG TABLET ONE (03:12)
[2017-05-06] MEDS ORDERED: METHADONE HCL 5 MG TABLET ONE (03:12)
[2017-05-06] MEDS ORDERED: METHADONE HCL 40 MG DISPERSABLE TABLET ONE (03:13)
[2017-05-06] MEDS: METHADONE 80 MG, METHADONE 20 MG, METHADONE 5 MG PO SCH (06:42)
[2017-05-06] MEDS: PRENATAL VITAMINS W/ FOLIC ACID TABLET (FP) PO SCH (10:01)
[2017-05-06] MEDS: NICOTINE 14 MG/24 HOURS TOPICAL PATCH TD SCH (10:01)
[2017-05-06] MEDS: ENALAPRIL MALEATE 10 MG TABLET (FP) PO SCH ×2 (10:01→21:21)
[2017-05-06] MEDS: THIAMINE HCL 100 MG TABLET (FP) PO SCH (21:21)
[2017-05-06] MEDS: hydrOXYzine PAMOATE 50 MG CAPSULE (FP) PO PRN (21:22)
[2017-05-07] MEDS ORDERED: METHADONE HCL 10 MG TABLET ONE (03:20)
[2017-05-07] MEDS ORDERED: METHADONE HCL 40 MG DISPERSABLE TABLET ONE (03:20)
[2017-05-07] MEDS ORDERED: METHADONE HCL 5 MG TABLET ONE (03:20)
[2017-05-07] MEDS: METHADONE 80 MG, METHADONE 20 MG, METHADONE 5 MG PO SCH (06:41)
[2017-05-07] MEDS: ENALAPRIL MALEATE 10 MG TABLET (FP) PO SCH ×3 (07:36→21:43)
[2017-05-07] MEDS: PRENATAL VITAMINS W/ FOLIC ACID TABLET (FP) PO SCH (10:26)
[2017-05-07] MEDS: NICOTINE 14 MG/24 HOURS TOPICAL PATCH TD SCH (10:26)
[2017-05-07] MEDS: THIAMINE HCL 100 MG TABLET (FP) PO SCH (21:43)
[2017-05-07] MEDS: hydrOXYzine PAMOATE 50 MG CAPSULE (FP) PO PRN (21:44)
[2017-05-08] MEDS ORDERED: METHADONE HCL 40 MG DISPERSABLE TABLET ONE (05:41)
[2017-05-08] MEDS ORDERED: METHADONE HCL 10 MG TABLET ONE (05:41)
[2017-05-08] MEDS ORDERED: METHADONE HCL 5 MG TABLET ONE (05:41)
[2017-05-08] MEDS: METHADONE 80 MG, METHADONE 20 MG, METHADONE 5 MG PO SCH (06:39)
[2017-05-08] MEDS: ENALAPRIL MALEATE 10 MG TABLET (FP) PO SCH ×3 (07:26→21:26)
[2017-05-08] MEDS ORDERED: amLODIPine BESYLATE 5 MG TABLET (FP) PO SCH (10:00)
[2017-05-08] MEDS: PRENATAL VITAMINS W/ FOLIC ACID TABLET (FP) PO SCH (10:14)
[2017-05-08] MEDS: NICOTINE 14 MG/24 HOURS TOPICAL PATCH TD SCH (10:15)
[2017-05-08] MEDS: amLODIPine BESYLATE 5 MG TABLET (FP) PO SCH (14:35)
[2017-05-08] MEDS ORDERED: PT OWN MED DRAWER 7, Y5N ONE (14:36)
[2017-05-08] MEDS: THIAMINE HCL 100 MG TABLET (FP) PO SCH (21:26)
[2017-05-08] MEDS: hydrOXYzine PAMOATE 50 MG CAPSULE (FP) PO PRN (21:27)
[2017-05-09] MEDS ORDERED: METHADONE HCL 10 MG TABLET PO SCH (06:00)
[2017-05-09] MEDS ORDERED: METHADONE HCL 10 MG TABLET ONE (06:38)
[2017-05-09] MEDS ORDERED: METHADONE HCL 5 MG TABLET ONE (06:38)
[2017-05-09] MEDS: METHADONE 80 MG, METHADONE 20 MG, METHADONE 5 MG PO SCH (06:38)
[2017-05-09] MEDS ORDERED: METHADONE HCL 40 MG DISPERSABLE TABLET ONE (06:38)
[2017-05-09] MEDS: ENALAPRIL MALEATE 10 MG TABLET (FP) PO SCH ×2 (07:42→21:17)
[2017-05-09] MEDS: NICOTINE 14 MG/24 HOURS TOPICAL PATCH TD SCH (10:18)
[2017-05-09] MEDS: amLODIPine BESYLATE 5 MG TABLET (FP) PO SCH (10:18)
[2017-05-09] MEDS: PRENATAL VITAMINS W/ FOLIC ACID TABLET (FP) PO SCH (10:18)
[2017-05-09] MEDS: THIAMINE HCL 100 MG TABLET (FP) PO SCH (21:17)
[2017-05-09] MEDS: diphenhydrAMINE HCL 50 MG CAPSULE PO SCH (21:17)
[2017-05-10] MEDS ORDERED: METHADONE HCL 5 MG TABLET ONE (03:15)
[2017-05-10] MEDS ORDERED: METHADONE HCL 10 MG TABLET ONE (03:15)
[2017-05-10] MEDS ORDERED: METHADONE HCL 40 MG DISPERSABLE TABLET ONE (03:16)
[2017-05-10] MEDS: ENALAPRIL MALEATE 10 MG TABLET (FP) PO SCH ×2 (06:39→21:24)
[2017-05-10] MEDS: METHADONE 80 MG, METHADONE 20 MG, METHADONE 5 MG PO SCH (06:39)
[2017-05-10] MEDS: PRENATAL VITAMINS W/ FOLIC ACID TABLET (FP) PO SCH (10:16)
[2017-05-10] MEDS: NICOTINE 14 MG/24 HOURS TOPICAL PATCH TD SCH (10:16)
[2017-05-10] MEDS: amLODIPine BESYLATE 5 MG TABLET (FP) PO SCH (10:16)
[2017-05-10] MEDS: THIAMINE HCL 100 MG TABLET (FP) PO SCH (21:23)
[2017-05-10] MEDS: diphenhydrAMINE HCL 50 MG CAPSULE PO SCH (21:24)
[2017-05-11] MEDS ORDERED: METHADONE HCL 5 MG TABLET ONE (06:00)
[2017-05-11] MEDS ORDERED: METHADONE HCL 40 MG DISPERSABLE TABLET ONE (06:00)
[2017-05-11] MEDS ORDERED: METHADONE HCL 10 MG TABLET ONE (06:00)
[2017-05-11] MEDS: METHADONE 80 MG, METHADONE 20 MG, METHADONE 5 MG PO SCH (06:27)
[2017-05-11] MEDS: ENALAPRIL MALEATE 10 MG TABLET (FP) PO SCH ×2 (06:28→21:21)
[2017-05-11] MEDS: amLODIPine BESYLATE 5 MG TABLET (FP) PO SCH (10:07)
[2017-05-11] MEDS: NICOTINE 14 MG/24 HOURS TOPICAL PATCH TD SCH (10:08)
[2017-05-11] MEDS: PRENATAL VITAMINS W/ FOLIC ACID TABLET (FP) PO SCH (10:08)
[2017-05-11] MEDS ORDERED: PT OWN MED DRAWER 7, Y5N ONE (15:17)
[2017-05-11] MEDS: THIAMINE HCL 100 MG TABLET (FP) PO SCH (21:21)
[2017-05-11] MEDS: diphenhydrAMINE HCL 50 MG CAPSULE PO SCH (21:21)
[2017-05-12] MEDS ORDERED: METHADONE HCL 5 MG TABLET ONE (05:51)
[2017-05-12] MEDS ORDERED: METHADONE HCL 10 MG TABLET ONE (05:52)
[2017-05-12] MEDS ORDERED: METHADONE HCL 40 MG DISPERSABLE TABLET ONE (05:52)
[2017-05-12] MEDS: ENALAPRIL MALEATE 10 MG TABLET (FP) PO SCH ×2 (06:41→21:17)
[2017-05-12] MEDS: METHADONE 80 MG, METHADONE 20 MG, METHADONE 5 MG PO SCH (06:41)
[2017-05-12] MEDS: amLODIPine BESYLATE 5 MG TABLET (FP) PO SCH (10:07)
[2017-05-12] MEDS: NICOTINE 14 MG/24 HOURS TOPICAL PATCH TD SCH (10:07)
[2017-05-12] MEDS: PRENATAL VITAMINS W/ FOLIC ACID TABLET (FP) PO SCH (10:07)
[2017-05-12] MEDS: THIAMINE HCL 100 MG TABLET (FP) PO SCH (21:17)
[2017-05-12] MEDS: diphenhydrAMINE HCL 50 MG CAPSULE PO SCH (21:17)
[2017-05-13] MEDS ORDERED: METHADONE HCL 5 MG TABLET ONE (05:50)
[2017-05-13] MEDS ORDERED: METHADONE HCL 10 MG TABLET ONE (05:50)
[2017-05-13] MEDS ORDERED: METHADONE HCL 40 MG DISPERSABLE TABLET ONE (05:51)
[2017-05-13] MEDS: ENALAPRIL MALEATE 10 MG TABLET (FP) PO SCH ×2 (07:05→21:26)
[2017-05-13] MEDS: METHADONE 80 MG, METHADONE 20 MG, METHADONE 5 MG PO SCH (07:05)
[2017-05-13] MEDS: PRENATAL VITAMINS W/ FOLIC ACID TABLET (FP) PO SCH (09:47)
[2017-05-13] MEDS: NICOTINE 14 MG/24 HOURS TOPICAL PATCH TD SCH (09:47)
[2017-05-13] MEDS: amLODIPine BESYLATE 5 MG TABLET (FP) PO SCH (09:47)
[2017-05-13] MEDS: THIAMINE HCL 100 MG TABLET (FP) PO SCH (21:26)
[2017-05-13] MEDS: diphenhydrAMINE HCL 50 MG CAPSULE PO SCH (21:26)
[2017-05-13] MEDS ORDERED: PT OWN MED DRAWER 7, Y5N ONE ×2 (23:12→23:14)
[2017-05-14] MEDS ORDERED: METHADONE HCL 40 MG DISPERSABLE TABLET ONE (05:58)
[2017-05-14] MEDS ORDERED: METHADONE HCL 10 MG TABLET ONE (05:58)
[2017-05-14] MEDS ORDERED: METHADONE HCL 5 MG TABLET ONE (05:58)
[2017-05-14] MEDS: METHADONE 80 MG, METHADONE 20 MG, METHADONE 5 MG PO SCH (06:36)
[2017-05-14] MEDS: ENALAPRIL MALEATE 10 MG TABLET (FP) PO SCH ×2 (06:36→21:17)
[2017-05-14] MEDS: PRENATAL VITAMINS W/ FOLIC ACID TABLET (FP) PO SCH (10:02)
[2017-05-14] MEDS: amLODIPine BESYLATE 5 MG TABLET (FP) PO SCH (10:02)
[2017-05-14] MEDS: NICOTINE 14 MG/24 HOURS TOPICAL PATCH TD SCH (10:02)
[2017-05-14] MEDS ORDERED: PT OWN MED DRAWER 7, Y5N ONE (15:31)
[2017-05-14] MEDS: THIAMINE HCL 100 MG TABLET (FP) PO SCH (21:17)
[2017-05-14] MEDS: diphenhydrAMINE HCL 50 MG CAPSULE PO SCH (21:17)
[2017-05-15] MEDS ORDERED: METHADONE HCL 10 MG TABLET ONE (02:36)
[2017-05-15] MEDS ORDERED: METHADONE HCL 5 MG TABLET ONE (02:36)
[2017-05-15] MEDS ORDERED: METHADONE HCL 40 MG DISPERSABLE TABLET ONE (02:37)
[2017-05-15] MEDS: ENALAPRIL MALEATE 10 MG TABLET (FP) PO SCH ×2 (06:15→21:23)
[2017-05-15] MEDS: METHADONE 80 MG, METHADONE 20 MG, METHADONE 5 MG PO SCH (06:16)
[2017-05-15] MEDS ORDERED: PT OWN MED DRAWER 7, Y5N ONE ×2 (08:31→10:21)
[2017-05-15] MEDS: PRENATAL VITAMINS W/ FOLIC ACID TABLET (FP) PO SCH (10:19)
[2017-05-15] MEDS: amLODIPine BESYLATE 5 MG TABLET (FP) PO SCH (10:19)
[2017-05-15] MEDS: NICOTINE 14 MG/24 HOURS TOPICAL PATCH TD SCH (10:22)
[2017-05-15] MEDS: hydrOXYzine PAMOATE 50 MG CAPSULE (FP) PO PRN (13:14)
[2017-05-15] MEDS: diphenhydrAMINE HCL 50 MG CAPSULE PO SCH (21:23)
[2017-05-15] MEDS: THIAMINE HCL 100 MG TABLET (FP) PO SCH (21:23)
[2017-05-16] MEDS ORDERED: METHADONE HCL 10 MG TABLET ONE (03:30)
[2017-05-16] MEDS ORDERED: METHADONE HCL 5 MG TABLET ONE (03:30)
[2017-05-16] MEDS ORDERED: METHADONE HCL 40 MG DISPERSABLE TABLET ONE (03:30)
[2017-05-16] MEDS: ENALAPRIL MALEATE 10 MG TABLET (FP) PO SCH (06:22)
[2017-05-16] MEDS: METHADONE 80 MG, METHADONE 20 MG, METHADONE 5 MG PO SCH (06:22)
[2017-05-16 06:59] VITALS: PULSE 60; TEMP 98.1
[2017-05-16 09:02] VITALS: BP 147/96
[2017-05-16] MEDS: PRENATAL VITAMINS W/ FOLIC ACID TABLET (FP) PO SCH (10:13)
[2017-05-16] MEDS: amLODIPine BESYLATE 5 MG TABLET (FP) PO SCH (10:13)
[2017-05-16] MEDS: NICOTINE 14 MG/24 HOURS TOPICAL PATCH TD SCH (10:14)
--- NOTE | 2017-05-16 10:21 | PN ---
Psychiatric Progress Note Vital Signs: Vital Signs Period Temp Pulse Resp BP Sys/Mcgarry Pulse Ox Last 24 Hr 98.1 F 60-73 16-18 142-147/81-96 Date of Session: 05/16/17 Chief Complaint:: Discharge visit HPI: Patient addressed ALCOHOL,OPIOID AND COCAINE DEPENDENCE COMORBID WITH SUBSTANCE INDUCED MOOD DISORDER. ROS: Anemia,BA,HTN. Current Medications: Active Medications Generic Name Dose Route Start Last Admin Trade Name Freq PRN Reason Stop Dose Admin Acetaminophen 650 mg 05/01/17 12:31 Tylenol - PO Q4H PRN FEVER OR PAIN Al Hydroxide/Mg Hydroxide 30 ml 05/01/17 12:31 Mylanta Oral Suspension - PO Q6H PRN DYSPEPSIA Albuterol Sulfate 2 puff 05/01/17 12:32 Ventolin Hfa Inhaler - IH Q4H PRN ASTHMA Amlodipine Besylate 5 mg 05/08/17 13:56 05/16/17 10:13 Norvasc - PO 5 mg DAILY DREW Administration Colloidal Oatmeal 1 applic 05/01/17 12:34 Aveeno Soap - TP DAILY PRN HYGEINE Diphenhydramine HCl 100 mg 05/09/17 22:00 05/15/17 21:23 Benadryl - PO 100 mg HS DREW Administration Enalapril Maleate 10 mg 05/09/17 07:15 05/16/17 06:22 Vasotec - PO 10 mg BID@0700,2200 DREW Administration Eucalyptus/Menthol/Phenol/Sorbitol 1 each 05/01/17 12:31 Cepastat Lozenge - MM Q4H PRN SORE THROAT Guaifenesin 10 ml 05/01/17 12:31 Robitussin Dm - PO Q6H PRN COUGH Hydroxyzine Pamoate 50 mg 05/01/17 12:31 05/15/17 13:14 Vistaril - PO 50 mg Q4H PRN Administration AGITATION Ibuprofen 400 mg 05/01/17 12:31 05/09/17 13:39 Motrin - PO 400 mg Q6H PRN Administration PAIN Loperamide HCl 4 mg 05/01/17 12:31 05/02/17 13:51 Imodium - PO 4 mg Q6H PRN Administration DIARRHEA Magnesium Hydroxide 30 ml 05/01/17 12:31 Milk Of Magnesia - PO DAILY PRN CONSTIPATION Methadone HCl 80 mg/ Methadone 105 mg 05/09/17 06:00 05/16/17 06:22 HCl 20 mg/ Methadone HCl 5 mg PO 105 mg DAILY@0600 DREW Administration Nicotine 14 mg 05/02/17 10:00 05/16/17 10:14 Nicoderm Patch - TD Not Given DAILY DREW Nicotine Polacrilex 2 mg 05/01/17 12:31 Nicorette Gum - BUC Q2H PRN NICOTINE REPLACEMENT RX Multivit/Folic Acid/Iron 1 tab 05/02/17 10:00 05/16/17 10:13 Vitamins (Sjr) - PO 1 tab DAILY DREW Administration Pseudoephedrine/Triprolidine 1 combo 05/01/17 12:31 Actifed - PO TID PRN NASAL CONGESTION Thiamine HCl 100 mg 05/01/17 22:00 05/15/17 21:23 Vitamin B1 - PO 100 mg HS DREW Administration Current Side Effect: No Lab tests ordered: No Lab tests reviewed: Yes Provider note:: Patient completed this program today 05/16/17.She has met her treatemnt goals partially and will continue to address her issues on outpatient basis.Patient reports finding that Benadryl 100 mg po hs helps to cope with sleeping difficulties,script for 30 days suppply of the above medication provided.Patient identifies areas of difficulties,behaviors which contribute to relapse and coping skills,support she can utilze to maintain recovery. Patient is stable for discharge today. Total face to face time:: 30 Mental Status Exam - Mental Status Exam Alert and Oriented to: Time, Place, Person Cognitive Function: Grossly Intact Patient Appearance: Well Groomed Mood: Anxious, Euthymic Affect: Mood Congruent Patient Behavior: Appropriate, Cooperative Speech Pattern: Clear Voice Loudness: Normal Thought Process: Goal Oriented Thought Disorder: Not Present Hallucinations: Denies Suicidal Ideation: Denies Homicidal Ideation: Denies Insight/Judgement: Fair Sleep: Fair Appetite: Fair Muscle strength/Tone: Normal Gait/Station: Normal
[2017-05-16] MEDS ORDERED: PT OWN MED DRAWER 7, Y5N ONE (10:46)
== END 2017-05-16 11:30 | disposition home or self-care (01) | DRG 895 ==
LOC: YASAS 11:30 → Y3E 11:32
PROVIDERS: ADMIT Psychiatry & Neurology Psychiatry; ATTEND Psychiatry & Neurology Psychiatry
PROC: HZ42ZZZ Group Counseling for Substance Abuse Treatment, Cognitive-Behavioral (ICD-10-PCS; principal; 2017-05-01)
DX: F10.20 Alcohol dependence, uncomplicated (principal); F11.20 Opioid dependence, uncomplicated; F14.20 Cocaine dependence, uncomplicated; F17.210 Nicotine dependence, cigarettes, uncomplicated; F19.24 Other psychoactive substance dependence with psychoactive substance-induced mood disorder; D64.9 Anemia, unspecified
CPT/HCPCS: 36415; 80053; 82140; 85025; 86803; 87389; 87522

== ENCOUNTER 2024-09-05 13:12 | Inpatient (IN) | payer OTHER ==
[2024-09-05 13:55] VITALS: BMI 21.4
[2024-09-05] MEDS ORDERED: guaiFENesin 600 MG TABLET.ER (FP) PO PRN (15:51)
[2024-09-05] MEDS ORDERED: ONDANSETRON *ODT* 4 MG TABLET SL PRN (15:51)
[2024-09-05] MEDS ORDERED: IBUPROFEN 400 MG TABLET (FP) PO PRN (15:51)
[2024-09-05] MEDS ORDERED: MAGNESIUM HYDROX 2400MG/30ML ORAL SUSPENSION 30 ML CUP PO PRN (15:51)
[2024-09-05] MEDS ORDERED: BENZONATATE 200 MG CAPSULE PO PRN (15:51)
[2024-09-05] MEDS ORDERED: NICOTINE POLACRILEX 2 MG LOZENGE BC PRN (15:51)
[2024-09-05] MEDS ORDERED: NICOTINE POLACRILEX 2 MG GUM BUC PRN (15:51)
[2024-09-05] MEDS ORDERED: BISMUTH SUBSALICYLATE 262 MG/15 ML BTL PO PRN (15:51)
[2024-09-05] MEDS ORDERED: MAG HYDROX/AL HYDROX/SIMETH 30 ML UNIT-DOSE CUP PO PRN (15:51)
[2024-09-05] MEDS ORDERED: LOPERAMIDE HCL 2 MG CAPSULE PO PRN (15:51)
[2024-09-05] MEDS ORDERED: IBUPROFEN 600 MG TABLET (FP) PO PRN (15:51)
[2024-09-05] MEDS ORDERED: POLYETHYLENE GLYCOL (HEALTHYLAX) 3350 17 GM PACKET PO PRN (15:51)
[2024-09-05] MEDS ORDERED: DICYCLOMINE HCL 10 MG CAPSULE PO PRN (15:51)
[2024-09-05] MEDS ORDERED: NALOXONE (NARCAN) HCL 4 MG/0.1 ML SPRAY NS PRN (15:51)
[2024-09-05] MEDS ORDERED: BENZOCAINE/MENTHOL (CHLORASEPTIC ) LOZENGE MM PRN (15:51)
[2024-09-05] MEDS ORDERED: ALBUTEROL SO4 HFA INHALER IH PRN (17:19)
[2024-09-05] MEDS: amLODIPine BESYLATE 5 MG TABLET (FP) PO SCH (17:59)
[2024-09-05] MEDS: METOPROLOL TARTRATE 25 MG TABLET (FP) PO SCH (21:39)
[2024-09-05] MEDS: MELATONIN 5 MG TABLETS PO SCH (21:39)
[2024-09-05] MEDS: MONTELUKAST NA 10 MG TABLET PO SCH (21:40)
[2024-09-05] MEDS: THIAMINE 100 MG TABLET PO SCH (21:40)
[2024-09-05] MEDS: ASPIRIN COATED 81 MG TABLET.EC PO SCH (21:42)
[2024-09-06] MEDS: cloNIDine HCL 0.1 MG TABLET PO ONE (06:50)
[2024-09-06] MEDS ORDERED: LORazepam 1 MG TABLET PO PRN (09:37)
[2024-09-06] MEDS: PRENATAL VITAMINS W/ FOLIC ACID TABLET (FP) PO SCH (10:34)
[2024-09-06] MEDS: methaDONE HCL 40 MG DISPERSABLE TABLET PO ONE (10:34)
[2024-09-06] MEDS: LORazepam 2 MG TABLET PO SCH (10:34)
[2024-09-06] MEDS: FLUTICASONE/UMECLIDIN/VILANTER(200-62.5-25 TRELEGY ELLIPTA) INAHLER IH SCH (10:53)
[2024-09-06 11:06] LABS: HEMATOCRIT 39.6 % (32.4-45.2); HEMOGLOBIN 12.8 GM/dL (10.7-15.3); MCH 28.2 pg (25.7-33.7); MCHC 32.3 g/dl (32.0-36.0); MEAN CELL VOLUME 87.2 fl (80-96); MEAN PLT VOLUME 8.4 fl (7.5-11.1); PLATELET COUNT 207 10^3/uL (134-434); RBC 4.54 M/mm3 (3.60-5.2); RDW 16.7 % (11.6-15.6); WHITE BLOOD COUNT 3.6 K/mm3 (4.0-10.0)
[2024-09-06 11:12] LABS: CHLORIDE 105 mmol/L (98-107); POTASSIUM 4.7 mmol/L (3.5-5.1); SODIUM 140 mmol/L (136-145)
[2024-09-06 11:21] LABS: CALCIUM 8.9 mg/dL (8.5-10.1)
[2024-09-06 11:22] LABS: ALBUMIN 3.5 g/dl (3.4-5.0); ANION GAP 6 mmol/L (4-13); BLOOD UREA NITROGEN 31.1 mg/dL (7-18); CO2 29 mmol/L (21-32); GLUCOSE,RANDOM 72 mg/dL (74-106)
[2024-09-06 11:25] LABS: CREATININE 2.2 mg/dL (0.55-1.3); SGOT/AST 26 U/L (15-37); SGPT/ALT 16 U/L (13-61)
[2024-09-06 11:26] LABS: BILIRUBIN,TOTAL 0.4 mg/dL (0.2-1); TOT PROT 7.3 g/dl (6.4-8.2)
[2024-09-06 11:28] LABS: ALK PHOS 127 U/L (45-117)
[2024-09-06] MEDS: MELATONIN 5 MG TABLETS PO SCH (22:49)
[2024-09-07] MEDS ORDERED: methaDONE HCL 10 MG TABLET PO SCH (10:00)
[2024-09-07] MEDS: methaDONE HCL 40 MG DISPERSABLE TABLET PO ONE (10:59)
[2024-09-07] MEDS: methaDONE HCL 10 MG TABLET PO ONE ×2 (11:05→17:37)
[2024-09-07 12:02] LABS: POTASSIUM 4.7 mmol/L (3.5-5.1)
[2024-09-07 12:05] LABS: CALCIUM 9.2 mg/dL (8.5-10.1)
[2024-09-07 12:06] LABS: ALBUMIN 3.4 g/dl (3.4-5.0); BLOOD UREA NITROGEN 32.3 mg/dL (7-18)
[2024-09-07 12:09] LABS: CREATININE 2.1 mg/dL (0.55-1.3)
[2024-09-07 12:11] LABS: BILIRUBIN,TOTAL 0.6 mg/dL (0.2-1)
[2024-09-07] MEDS: LORazepam 1 MG TABLET PO SCH (17:37)
[2024-09-07] MEDS ORDERED: LORazepam 0.5 MG TABLET PO PRN (20:00)
[2024-09-08] MEDS ORDERED: LORazepam 1 MG TABLET PO SCH (05:00)
[2024-09-08] MEDS: LORazepam 1 MG TABLET PO SCH (05:52)
[2024-09-08] MEDS: methaDONE HCL 10 MG TABLET PO SCH (09:23)
[2024-09-08] MEDS: methaDONE HCL 40 MG DISPERSABLE TABLET PO SCH (10:12)
[2024-09-08] MEDS: ENALAPRIL MALEATE 10 MG TABLET PO SCH (10:34)
[2024-09-09] MEDS ORDERED: LORazepam 0.5 MG TABLET PO PRN
[2024-09-09] MEDS ORDERED: LORazepam 0.5 MG TABLET PO SCH (05:00)
[2024-09-09] MEDS: LORazepam 0.5 MG TABLET PO SCH (05:39)
[2024-09-09] MEDS: ACETAMINOPHEN 325 MG TABLET (FP) PO PRN (07:18)
[2024-09-10] MEDS ORDERED: LORazepam 0.5 MG TABLET PO ONE (05:00)
[2024-09-10] MEDS: LORazepam 0.5 MG TABLET PO ONE (05:30)
[2024-09-10 09:55] VITALS: BP 150/100; PULSE 72; RESP 16; TEMP 98
== END 2024-09-10 10:20 | disposition home or self-care (01) | DRG 897 ==
LOC: YASAS 13:12 → Y3N 16:27
PROVIDERS: ADMIT Allergy & Immunology; ATTEND Allergy & Immunology
PROC: HZ2ZZZZ Detoxification Services for Substance Abuse Treatment (ICD-10-PCS; principal; 2024-09-05)
DX: F10.230 Alcohol dependence with withdrawal, uncomplicated (principal); F11.20 Opioid dependence, uncomplicated; F19.282 Other psychoactive substance dependence with psychoactive substance-induced sleep disorder; F17.210 Nicotine dependence, cigarettes, uncomplicated; I48.91 Unspecified atrial fibrillation; I12.9 Hypertensive chronic kidney disease with stage 1 through stage 4 chronic kidney disease, or unspecified chronic kidney disease; N18.9 Chronic kidney disease, unspecified; J44.9 Chronic obstructive pulmonary disease, unspecified; J45.20 Mild intermittent asthma, uncomplicated; N28.9 Disorder of kidney and ureter, unspecified; R76.11 Nonspecific reaction to tuberculin skin test without active tuberculosis; R29.6 Repeated falls
CPT/HCPCS: 36415; 71045-TC-FY; 80053; 80305; 80307; 85027; 86780; 93005; 93010